=== PATIENT | female | born 1950 | race Caucasian/White ===

== ENCOUNTER 2019-10-02 14:48 | Emergency (ER) | payer OTHER, SELFPAY ==
[2019-10-02 14:56] VITALS: BP 180/93; PULSE 95; RESP 16; O2SAT 97; BMI 20.7
--- NOTE | 2019-10-02 14:56 | DI.RAD.S_ITS ---
PROCEDURE: XR WRIST RT MIN 3V INDICATIONS: injury TECHNIQUE: 3 views of the wrist were acquired. COMPARISON: None. FINDINGS: Bones: Intra-articular comminuted fracture of the distal radial metaphysis. There is diastasis of the distal radial articular surface measuring approximately 2 mm There is also ulnar styloid fracture although this technically age-indeterminate. Diffuse osteopenia. Widespread carpal joint degeneration with subchondral sclerosis and spurring. Second MCP joint degeneration. Soft tissues: No suspicious soft tissue calcifications. IMPRESSION: Intra-articular comminuted fracture of the distal radial metaphysis with mild articular surface incongruity. Chronic appearing ulnar styloid fracture Dictated by: Arvind Beltran M.D. on 10/02/2019 at 15:44 Approved by: Arvind Beltran M.D. on 10/02/2019 at 15:47
[2019-10-02 15:11] VITALS: PULSE 80
[2019-10-02] MEDS: HYDROCODONE/ACET 5/325 TABLET 1 TAB PO (15:32)
--- NOTE | 2019-10-02 15:37 | ED_ITS ---
HPI - Extremity Injury (Upper) <JOSE TraylorP - Last Filed: 10/02/19 16:38> General Chief Complaint: Extremity Injury, Upper Stated Complaint: rt wrist injury Time Seen by Provider: 10/02/19 15:01 Source: patient Mode of arrival: Ambulatory Limitations: no limitations History of Present Illness HPI narrative: This is a 69-year-old female, prior smoker, who presents to ED with right wrist pain and swelling. Patient states she had slipped and fall around 2:00 p.m. at the [facility] and had s/p FOOSH on right hand. Patient denies hitting her head or injuring other areas. Patient denies prior history of right hand or wrist injury. Patient reports pain increases with right finger and hand movements and rates as 7/10 at this time and all over the right wrist. Patient denies tingling or numbness on affected hand. Patient right dominant hand. Patient has been using ice packs and takes and stays daily twice a day for arthritis pain. Related Data Home Medications Medication Instructions Recorded Confirmed duloxetine 60 mg PO BID 10/02/19 Previous Rx's Medication Instructions Recorded hydrocodone-acetaminophen [Barclay] 1 tab PO Q6H PRN #14 tab 10/02/19 Allergies Allergy/AdvReac Type Severity Reaction Status Date / Time codeine Allergy Verified 10/02/19 14:56 tetracycline Allergy Verified 10/02/19 14:56 Review of Systems <JOSE TraylorP - Last Filed: 10/02/19 16:38> Review of Systems Narrative: General: Denies fever, chills, fatigue, malaise, sweats. HEENT: Denies sinus pain, ear pain, sore throat, difficulty swallowing, dizziness. Respiratory: Denies dyspnea, cough, wheezing, hemoptysis, sputum. Cardiovascular: Denies chest pain, palpitations, orthopnea, edema. Gastrointestinal: Denies nausea, vomiting, abdominal pain, diarrhea, constipation, melena. : Denies dysuria, frequency, incontinence, hematuria, urinary retention. Musculoskeletal: See HPI Skin: Denies rash, skin lesions, or other. Neurologic: Denies weakness, headache, numbness, change in speech, confusion, seizures, incoordination. Psychiatric: No concerning psychosocial issues. 12-point review of systems is negative except for those stated above. Patient History <TRES Traylor - Last Filed: 10/02/19 16:38> Medical History (Updated 10/02/19 @ 16:34 by Arely Turner RN) Osteoporosis (Acute) Surgical History H/O toe surgery (Acute) H/O: hysterectomy (Acute) Social History Smoking Status: Never smoker alcohol intake: current substance use type: does not use Smoking Status: Never smoker Substance Use Type: does not use Exam <TRES Traylor - Last Filed: 10/02/19 16:38> Narrative Exam Narrative: General appearance: well developed, well nourished, in no acute distress. Head: normocephalic, atraumatic, no scalp lesions, non-tender. ENT: Bilateral auditory canals and tympanic membranes clear. Hearing grossly intact. Nose without bleeding, purulent discharge, septal hematoma or deviation. Turbinate without erythema or swelling. Facial sinuses nontender to palpate. Mucous membrane moist, no mucosal lesion. Throat without erythema, tonsillar hypertrophy or exudate. Uvula in midline, airway patent. Neck/Thyroid: neck supple, full range of motion, no visible masses or meningeal signs. No JVD, non-tender without lymphadenopathy. Skin: no suspicious rashes, lesions over visible areas. Warm and dry and galileo ropriate color for ethnicity. Heart: no clubbing, no cyanosis, no edema. S1 and S2 normal. RRR w/o murmurs, clicks, or bruits. Lungs: Breathing even and unlabored. No stridor. No accessory muscles used. Able to speak in full sentences. Chest: normal shape and expansion. Abdomen: non-obese, non-distended. Neurologic: alert and oriented. Cognitive exam, [employer] and PNS grossly intact on informal exam. Psych: good eye contact, normal affect. Initial Vital Signs Initial Vital Signs: Vital Signs Pulse Rate 95 H 10/02/19 14:56 Respiratory Rate 16 10/02/19 14:56 Blood Pressure 180/93 H 10/02/19 14:56 Pulse Oximetry 97 10/02/19 14:56 Extrem Right upper extremity: wrist Details: abnormal to inspection, tenderness, swelling, abnormal ROM Details: pain with active ROM during and pain with passive ROM during, deformity (Right radial aspect wrist with swelling), normal vascular exam and radial pulse present; no unusual warmth, no abrasions, no lacerations and no ecchymosis and hand Details: normal to inspection, normal capillary refill and vascular exam Details: radial pulse present <DO Dayana Lopez Last Filed: 10/03/19 08:10> Initial Vital Signs Initial Vital Signs: Vital Signs Pulse Rate 95 H 10/02/19 14:56 Respiratory Rate 16 10/02/19 14:56 Blood Pressure 180/93 H 10/02/19 14:56 Pulse Oximetry 97 10/02/19 14:56 Course <TRES Traylor - Last Filed: 10/02/19 16:38> Orders Ordered: Discontinued Medications Hydrocodone Bitart/Acetaminophen (Barclay 5/325) 1 tab PO NOW ONE Stop: 10/02/19 15:13 Last Admin: 10/02/19 15:32 Dose: 1 tab Documented by: ANDREA Vital Signs Vital signs: Vital Signs - 8 hr 10/02/19 14:56 10/02/19 15:11 10/02/19 16:24 Pulse Rate 95 H 78 Pulse Rate [Right Radial] 80 Respiratory Rate 16 18 Blood Pressure 180/93 H Blood Pressure [Left Arm] 156/78 H Pulse Oximetry 97 98 <Debora Goodson DO - Last Filed: 10/03/19 08:10> Orders Ordered: Discontinued Medications Hydrocodone Bitart/Acetaminophen (Barclay 5/325) 1 tab PO NOW ONE Stop: 10/02/19 15:13 Last Admin: 10/02/19 15:32 Dose: 1 tab Documented by: ANDREA Vital Signs Vital signs: Vital Signs - 8 hr 10/02/19 14:56 10/02/19 15:11 10/02/19 16:24 Pulse Rate 95 H 78 Pulse Rate [Right Radial] 80 Respiratory Rate 16 18 Blood Pressure 180/93 H Blood Pressure [Left Arm] 156/78 H Pulse Oximetry 97 98 MDM - Extremity Injury (Upper) <TRES Traylor - Last Filed: 10/02/19 16:38> Differential Diagnosis Differential diagnosis: Likely sprain and strain of wrist and fracture of wrist Medical Records Attestation: I reviewed the patient's medical records. Imaging Data XR- Wrist RT: Radiologist's impression: [address] [address] XRay Report Signed Patient: Sandra Maurer#: [id number] : 8Acct:[id number] Age/Sex: 69 / FDate of Service: 10/02/19 Loc: ED Accession Number: [id number] Procedure: XR wrist RT min 3V Ordering Provider: Debora Goodson D.O. PROCEDURE: XR WRIST RT MIN 3V INDICATIONS: injury TECHNIQUE: 3 views of the wrist were acquired. COMPARISON: None. FINDINGS: Bones: Intra-articular comminuted fracture of the distal radial metaphysis. There is diastasis of the distal radial articular surface measuring approximately 2 mm There is also ulnar styloid fracture although this technically age- indeterminate. Diffuse osteopenia. Widespread carpal joint degeneration with subchondral sclerosis and spurring. Second MCP joint degeneration. Soft tissues: No suspicious soft tissue calcifications. IMPRESSION: Intra-articular comminuted fracture of the distal radial metaphysis with mild articular surface incongruity. Chronic appearing ulnar styloid fracture Dictated by: Arvind Beltran M.D. on 10/02/2019 at 15:44 Approved by: Arvind Beltran M.D. on 10/02/2019 at 15:47 MDM Narrative Medical decision making narrative: 69-year-old female presents to ED with R wrist pain with s/p FOOSH at 1400 today. Pain increases with movement with decreased AROM and passive ROM. Neurovascular exam was intact distal to injury. X-ray test shows intra-articular comminuted fracture of the distal radial metaphysis and chronic appearing ulna styloid fracture. Sugar-tong splint with Ortho Glass has been applied on affected arm and sling provided. We discussed RICE therapy for pain. Patient is [place] patient and is currently on her way to [facility]. Xray of CD provided for patient to follow-up with orthopedist next 2-3 days. Patient provided with Barclay for severe pain and narcotic medication precautions were discussed with the patient. Patient advised continue to take NSAIDS b.i.d. and to use a splint all time. Return precautions were discussed with the patient and patient verbalized understanding and agrees with the treatment plan. Discharge Plan Departure Patient Disposition: Home Clinical Impression: Right wrist fracture Qualifiers: Encounter type: initial encounter Fracture type: closed Qualified Code(s): S62.101A - Fracture of unspecified carpal bone, right wrist, initial encounter for closed fracture Discharge Date/Time: 10/02/19 16:33 Instructions: DI for Wrist Fracture Activity Restrictions/Additional Instructions: You have been diagnosed with [right wrist fracture. X-ray test shows intra- articular comminuted fracture of the distal radus. Chronic appearing ulna styloid fracture]. What to do: *Take your medications as directed. Please take Barclay 1 tab every 4-6 hours as needed for severe pain. For medium to mild pain, you can take [id number] Tylenol. Please do not take more than 4000 mg Tylenol in 24 hour. You can continue to take NSAIDS twice a day. Please use splint all times and do not get it wet. Please use ?RICE? therapy such as Rest, Ice, Compression/Spliint/Acewra, and Elevation above the chest level. Ice the area for next 24-48 hrs after the initial injury. *Follow up with your primary care provider and orthopedist in 2-3 days, call for an appointment. You were provided with x-ray in disc. Let them know you were seen in the ED and that we asked you to be seen in follow up. *Return to ED if you have any new, worsening, or concerning symptoms, such as [ increasing pain, swelling, tingling/numbness, unable to move affected/below the injury site, cool limbs ]. Prescriptions: New hydrocodone-acetaminophen [Barclay] 5-325 mg tablet 1 tab PO Q6H PRN (Reason: pain) Qty: 14 RF: 0 No Action duloxetine 60 mg Capsule,Delayed Release(Dr/Ec) 60 mg PO BID RF: 0 Referrals: Turbidy, Eido [Other]
[2019-10-02 16:24] VITALS: BP 156/78; PULSE 78; RESP 18; O2SAT 98
== END 2019-10-02 16:33 | disposition home or self-care (01) ==
PROVIDERS: Emergency Provider Nurse Practitioner Family
DX: S62.101A Fracture of unspecified carpal bone, right wrist, initial encounter for closed fracture (principal); W01.0XXA Fall on same level from slipping, tripping and stumbling without subsequent striking against object, initial encounter
CPT/HCPCS: 29125; 73110; 99283